=== PATIENT | female | born 1995 | race Hispanic/Latino ===

== ENCOUNTER 2017-08-26 13:45 | Emergency (ER) | payer SELFPAY ==
[~2017-08-26] VITALS: Ht 144.8 cm; Wt 72.2 kg
[2017-08-26] MEDS ORDERED: PRENATA9 PO (13:54)
[2017-08-26 15:21] LABS: HEMATOCRIT 36.9 % (37.0-47.0); HEMOGLOBIN 12.8 g/dl (12.0-16.0); MEAN CELL VOLUME 86.2 fL CALC (80.0-100.0); MEAN CORPUSCULAR HGB 29.9 pG CALC (26.0-32.0); MEAN CORPUSCULAR HGB CONC 34.7 g/L CALC (32.0-36.0); NEUT# 7.57 thou/uL (2.00-7.15); RED BLOOD COUNT 4.28 mill/uL (4.20-5.60); RED CELL DISTRI WIDTH 11.7 % (11.5-15.5)
[2017-08-26 15:22] LABS: URINE BILIRUBIN - DIPSTICK NEGATIVE (NEGATIVE); URINE BLOOD DIPSTICK NEGATIVE (NEGATIVE); URINE COLOR YELLOW; URINE GLUCOSE - DIPSTICK NEGATIVE (NEGATIVE); URINE KETONE NEGATIVE (NEGATIVE); URINE LEUK ESTERASE NEGATIVE (NEGATIVE); URINE NITRITE - DIPSTICK NEGATIVE (Negative); URINE PROTEIN - DIPSTICK NEGATIVE (NEG-TRACE); URINE SPECIFIC GRAVITY 1.025; URINE UROBILINOGEN - DIPSTICK 0.2 E.U./dL (0.2)
[2017-08-26 15:23] LABS: URINE CLARITY CLEAR
[2017-08-26 17:06] VITALS: BP 131/78
== END 2017-08-26 17:06 | disposition home or self-care (01) | DRG 781 ==
LOC: ED 13:45
PROVIDERS: Emergency Medicine
DX: O26.892 Other specified pregnancy related conditions, second trimester (principal); R50.9 Fever, unspecified; M54.5 Low back pain; Z3A.15 15 weeks gestation of pregnancy

== ENCOUNTER 2019-07-30 10:15 | Emergency (ER) | payer SELFPAY ==
[~2019-07-30] VITALS: Ht 144.8 cm; Wt 72.7 kg
[~2019-07-30 10:15] MED LIST: PRENATA9 PO
[2019-07-30] MEDS ORDERED: ONDANSETRON4 MG PO (11:02)
[2019-07-30] MEDS ORDERED: CHERATUSSIN PO (11:02)
[2019-07-30] MEDS ORDERED: ZPAK PO (11:02)
[2019-07-30 11:12] VITALS: BP 122/78
== END 2019-07-30 11:12 | disposition home or self-care (01) | DRG 153 ==
LOC: ED 10:15
DX: J06.9 Acute upper respiratory infection, unspecified (principal)